=== PATIENT | female | born 1980 ===

== ENCOUNTER 2020-01-11 20:45 | Emergency (ER) | payer MEDICAID, OTHER ==
[~2020-01-11] VITALS: Ht 165.1 cm; Wt 55.0 kg
[2020-01-11 20:51] VITALS: BP 137/95
[2020-01-11] MEDS ORDERED: LORazepam 1MG TABLET ONE (21:22)
[2020-01-11] MEDS ORDERED: HYDROcodone/APAP 5/325 TABLET ONE (21:22)
--- NOTE | 2020-01-11 21:25 | NUR ---
PT MEDICATED PER MAR.
[2020-01-11] MEDS ORDERED: HYDROcodone/APAP 5/325 TABLET PO ONE (21:30)
[2020-01-11] MEDS ORDERED: LORazepam 1MG TABLET PO ONE (21:30)
--- NOTE | 2020-01-11 22:11 | NUR ---
PT D/C WITH D/C SUMMARY AND SCRIPTS. ALL QUESTIONS ANSWERED. PT AMBULATES TO REGISTRATION DESK WITH STEADY GAIT FOR D/C HOME. PT DENIES ANY OTHER NEEDS PERTAINING TO THIS VISIT.
== END 2020-01-11 22:15 | disposition home or self-care (01) ==
LOC: ED 21:53
DX: F41.1 Generalized anxiety disorder (principal); F11.10 Opioid abuse, uncomplicated
CPT/HCPCS: 99283